=== PATIENT | male | born 1985 | race Caucasian/White ===

== ENCOUNTER 2020-06-12 11:04 | Emergency (ER) | payer BC ==
[2020-06-12 11:11] VITALS: TEMP 98.1; BMI 29.6
--- NOTE | 2020-06-12 11:14 | PDOC ---
Rapid Medical Evaluation Chief Complaint: Chest Pain Time Seen by Provider: 06/12/20 11:12 Medical Evaluation: Allergies Allergy/AdvReac Type Severity Reaction Status Date / Time No Known Allergies Allergy Verified 06/12/20 11:11 Vital Signs Temp Pulse Resp BP Pulse Ox 98.1 F 79 18 118/72 100 06/12/20 11:09 06/12/20 11:09 06/12/20 11:09 06/12/20 11:09 06/12/20 11:09 06/12/20 11:13 CC: intermittent chest pain since 4am, no other complaints, no med hx, + cig smoker Exam: VSS, EKG NSR PLAN: Ekg, labs, , cxr Discharge Disposition - Diagnosis Chest pain - Referrals - Patient Instructions - Post Discharge Activity
--- NOTE | 2020-06-12 11:34 | PDOC ---
*Physical Exam - Vital Signs Last Vital Signs Temp Pulse Resp BP Pulse Ox 98.1 F 79 18 118/72 100 06/12/20 11:09 06/12/20 11:09 06/12/20 11:09 06/12/20 11:09 06/12/20 11:09 Heart Score/ECG Review #1 ECG reviewed & interpreted by me at: 11:12 General ECG Interpretation: Sinus Rhythm, Normal Rate (68), Normal Intervals (qtc 378), No acute ischemic changes Medical Decision Making - Medical Decision Making 06/12/20 11:35 Patient seen and evaluated with the nurse practitioner. I agree with the overall evaluation, assessment, and management with the following summary of visit: Healthy 35-year-old male with no significant past medical history, occasional cigarette smoker, at baseline has no exercise limitations, presents now with sharp chest pain that awoke him from sleep around 4 AM, since then mild but persistent, not associated with any exertional component. Slightly positional, no cough or fevers or chills. Vital signs normal Exam is normal No edema or calf tenderness 35-year-old male with atypical chest pain at rest, no ACS or PE risk factors, no red flags on history or physical exam. Occurred spontaneously about 7 hours prior to arrival, hemodynamically stable here. Check labs including 1 troponin EKG, chest x-ray If above is within normal limits, outpatient follow-up is appropriate given low heart score and atypical presentation Discharge - Discharge Information Problems reviewed: Yes Clinical Impression/Diagnosis: Chest pain Qualifiers: Chest pain type: unspecified Qualified Code(s): R07.9 - Chest pain, unspecified - Follow up/Referral - Patient Discharge Instructions - Post Discharge Activity
--- NOTE | 2020-06-12 11:45 | PDOC ---
History of Present Illness - General Chief Complaint: Chest Pain Stated Complaint: CHEST PAIN Time Seen by Provider: 06/12/20 11:12 History Source: Patient Exam Limitations: No Limitations - History of Present Illness Initial Comments: 06/12/20 11:38 HISTORY OF PRESENT ILLNESS: 35-year-old male denies medical history presents emergency department for evaluation of sudden onset left-sided chest pain starting at 4 AM which woke him from sleep. Patient reports the pain was a s tabbing pressure which is been waxing and waning since onset at 4 AM. Initially pain severity was 10/10 and is presently 3/10. Patient is not taking anything for his pain. Patient reports he was able to go to work today and throughout the day he was concerned that the pain did not go away. Patient spoke with his who recommended he come to the emergency department for evaluation. Patient denies any shortness of breath, leg swelling, dizziness, nausea, vomiting. No recent travel or sick contacts. PAST MEDICAL HISTORY: Denies past medical history SURGICAL HISTORY: Denies ALLERGIES: No known drug allergies PMD: None Reports intermittent tobacco use with 2 to 3 cigarettes daily EtOH: Social Illicits: Denies REVIEW OF SYSTEMS General/Constitutional: Denies fever or chills. Denies weakness, weight change. HEENT: Denies change in vision. Denies ear pain or discharge. Denies sore thr oat. Cardiovascular: See HPI Respiratory: Denies cough, wheezing, or hemoptysis. Gastrointestinal: Denies nausea, vomiting, diarrhea or constipation. Denies rectal bleeding. Genitourinary: Denies dysuria, frequency, or change in urination. Musculoskeletal: Denies joint or muscle swelling or pain. Denies neck or back pain. Skin and breasts: Denies rash or easy bruising. Neurologic: Denies headache, vertigo, loss of consciousness, or loss of sensation. Psychiatric: Denies depression or anxiety. Endocrine: Denies increased thirst. Denies abnormal weight change. Hematologic/Lymphatic: Denies anemia, easy bleeding, or history of blood clots. Allergic/Immunologic: Denies hives or skin allergy. Denies latex allergy. PHYSICAL EXAM General Appearance: Well-appearing, appropriately dressed. No apparent distress, no intoxication. HEENT: EOMI, PERRLA, normal ENT inspection, normal voice, TMs normal, pharynx normal. No conjunctival pallor. No photophobia, scleral icterus. Neck: Supple. Trachea midline. No tenderness, rigidity, carotid bruit, stridor, lymphadenopathy, or thyromegaly. Respiratory/Chest: Lungs CTAB. No shortness of breath, respiratory distress, accessory muscle use. No crackles, rales, rhonchi, stridor, wheezing, dullness. Left side of the chest tender to palpation over where his pain is. Cardiovascular: RRR. S1, S2. No JVD, murmur, bradycardia, tachycardia. Vascular Pulses: Dorsalis-Pedis (R): 2+, Dorsalis-Pedis (L): 2+ Gastrointestinal/Abdominal: Normal bowel sounds. Abdomen soft, non-distended. No tenderness or rebound tenderness. No organomegaly, pulsatile mass, guarding, hernia, hepatomegaly, splenomegaly. Past History - Medical History Allergies/Adverse Reactions: Allergies Allergy/AdvReac Type Severity Reaction Status Date / Time No Known Allergies Allergy Verified 06/12/20 11:11 Home Medications: Ambulatory Orders NK [No Known Home Medication] 07/20/18 Cancer: No Cardiac Disorders: No CVA: No COPD: No - Surgical History Cholecystectomy: No Gastric Stapling: No GI Surgery: No - Psycho-Social/Smoking History Smoking History: Never smoked Information on smoking cessation initiated: No - Substance Abuse Hx (Audit-C & DAST Scrn) How often the patient has a drink containing alcohol: Never Score: In Men: 4 or > Positive; In Women: 3 or > Positive: 0 Screen Result (Pos requires Nsg. Audit-10AR): Negative *Physical Exam - Vital Signs Last Vital Signs Temp Pulse Resp BP Pulse Ox 98.1 F 79 18 118/72 99 06/12/20 11:09 06/12/20 11:09 06/12/20 11:09 06/12/20 11:09 06/12/20 11:09 Heart Score/ECG Review - History History: Slightly suspicious - Electrocardiogram EKG: Normal - Age Age: </= 45 - Risk Factors Risk Factors Heart Score: Yes Smoking History Based on the list above the patient has:: 1-2 risk factors - Troponin Troponin: </= normal limit - Score Heart Score - Total: 1 ED Treatment Course - LABORATORY CBC & Chemistry Diagram: 06/12/20 11:38 06/12/20 11:38 - ADDITIONAL ORDERS Additional order review: Laboratory Results 06/12/20 11:38 Sodium 141 Potassium 4.5 Chloride 106 Carbon Dioxide 29 Anion Gap 6 L BUN 10.2 Creatinine 1.2 Est GFR (CKD-EPI)AfAm 90.26 Est GFR (CKD-EPI)NonAf 77.87 Random Glucose 98 Calcium 9.7 Total Bilirubin 0.7 AST 25 ALT 40 Alkaline Phosphatase 110 Creatine Kinase 196 Troponin I < 0.02 Total Protein 8.3 H Albumin 4.5 06/12/20 11:38 RBC 4.98 MCV 90.9 MCHC 33.3 RDW 13.7 MPV 8.8 Neutrophils % 57.0 Lymphocytes % 33.9 Monocytes % 7.2 Eosinophils % 1.1 Basophils % 0.8 - Medications Given in the ED: ED Medications Discontinued Medications Generic Name Dose Route Start Last Admin Trade Name Freq PRN Reason Stop Dose Admin Naproxen 500 mg 06/12/20 11:58 06/12/20 12:00 Naprosyn - PO 06/12/20 11:59 500 mg ONCE ONE Administration Medical Decision Making - Medical Decision Making 06/12/20 11:45 A/P: 35-year-old male with left-sided chest pain starting at 4 AM this been waxing and waning since that time without any complete cessation of pain Speaking full sentences Respirations even and unlabored Lungs clear to auscultation bilaterally Left pectoral muscle tender to palpation RRR. No murmur, rub or gallop noted Differential diagnosis includes but is not limited to ACS, pneumonia, GERD, musculoskeletal pain, PE PERC score 0. most likely musculoskeletal Labs including cardiac profile EKG-sinus rhythm with rate of 68. Normal intervals present with a QTC 370 ms. No ischemic changes present. Chest x-ray Reassess 06/12/20 12:32 Laboratory Tests 06/12/20 06/12/20 11:38 11:38 WBC 6.6 RBC 4.98 Hgb 15.1 Hct 45.3 MCV 90.9 MCH 30.2 MCHC 33.3 RDW 13.7 Plt Count 194 MPV 8.8 Absolute Neuts (auto) 3.7 Neutrophils % 57.0 Lymphocytes % 33.9 Monocytes % 7.2 Eosinophils % 1.1 Basophils % 0.8 Nucleated RBC % 0 Sodium 141 Potassium 4.5 Chloride 106 Carbon Dioxide 29 Anion Gap 6 L BUN 10.2 Creatinine 1.2 Est GFR (CKD-EPI)AfAm 90.26 Est GFR (CKD-EPI)NonAf 77.87 Random Glucose 98 Calcium 9.7 Total Bilirubin 0.7 AST 25 ALT 40 Alkaline Phosphatase 110 Creatine Kinase 196 Creatine Kinase Index Pending CK-MB (CK-2) Pending Troponin I < 0.02 Total Protein 8.3 H Albumin 4.5 Chest x-ray as read by Dr. Dawkins: No suspicious findings in the lungs. As patient has an unremarkable EKG, normal chest x-ray and laboratory testing is not suggestive of cardiac illness I feel it is safe to discharge the patient home to follow-up with PMD and will give referral for cardiology. I discussed the physical exam findings, ancillary test results and final diagnoses with the patient. I answered all of the patient's questions. The patient was satisfied with the care received and felt comfortable with the discharge plan and treatment plan. The patient will call their primary care physician within 24 hours to arrange follow-up and will return to the Emergency Department with any new, persistent or worsening symptoms. Portions of this note have been documented using voice recognition software. As a result, errors may occur in the indoor landscaper/gardener process. Effort has been made to correct all grammatical and indoor landscaper/gardener error, but some may have been missed which may produce sporadic inaccurate indoor landscaper/gardener or nonsensical phrases. Discharge - Discharge Information Problems reviewed: Yes Clinical Impression/Diagnosis: Chest pain Qualifiers: Chest pain type: unspecified Qualified Code(s): R07.9 - Chest pain, unspecified Condition: Fair Disposition: HOME - Admission No - Follow up/Referral Referrals: [facility] [Provider Group] Neeraj Falcon MD [Staff Physician] - - Patient Discharge Instructions Patient Printed Discharge Instructions: DI for Atypical Chest Pain Additional Instructions: Keep well-hydrated. Eat a well-balanced diet. Take Tylenol or Motrin as needed for pain. Follow hospital wellness coordinator's instructions for appropriate dosage. You have been given a referral today for both a primary doctor as well as a intake coordinator. Without fail follow-up for continued evaluation. Your emergency department visit is incomplete until you follow-up with your primary doctor. Return to the emergency department for any worsening chest pain, shortness of breath, dizziness or for any other concerns. Thank you very much for choosing us to provide your emergent healthcare needs. - Post Discharge Activity
[2020-06-12 11:51] LABS: BASO % 0.8 % (0-2.0); EOS % 1.1 % (0-4.5); HEMATOCRIT 45.3 % (35.4-49); HEMOGLOBIN 15.1 GM/dL (11.7-16.9); LYMPH % 33.9 % (8-40); MCH 30.2 pg (25.7-33.7); MCHC 33.3 g/dl (32.0-35.9); MEAN CELL VOLUME 90.9 fl (80-96); MEAN PLT VOLUME 8.8 fl (7.5-11.1); MONO % 7.2 % (3.8-10.2); PLATELET COUNT 194 K/MM3 (134-434); RBC 4.98 M/mm3 (4.00-5.60); RDW 13.7 % (11.9-15.9); WHITE BLOOD COUNT 6.6 K/mm3 (4.0-10.0)
[2020-06-12] MEDS ORDERED: NAPROXEN 500 MG TABLET PO ONE (11:58)
[2020-06-12] MEDS ORDERED: NAPROXEN 500 MG TABLET ONE (11:59)
[2020-06-12 12:21] LABS: ALBUMIN 4.5 g/dl (3.4-5.0); ALK PHOS 110 U/L (45-117); ANION GAP 6 MMOL/L (8-16); BILIRUBIN,TOTAL 0.7 mg/dL (0.2-1); BLOOD UREA NITROGEN 10.2 mg/dL (7-18); CALCIUM 9.7 mg/dL (8.5-10.1); CHLORIDE 106 mmol/L (98-107); CO2 29 mmol/L (21-32); CREATININE 1.2 mg/dL (0.55-1.3); GLUCOSE,RANDOM 98 mg/dL (74-106); POTASSIUM 4.5 mmol/L (3.5-5.1); SGOT/AST 25 U/L (15-37); SGPT/ALT 40 U/L (13-61); SODIUM 141 mmol/L (136-145); TOT PROT 8.3 g/dl (6.4-8.2)
[2020-06-12 12:48] VITALS: BP 120/78; PULSE 82
--- NOTE | 2020-06-13 12:57 | EKG ---
Test Reason : Blood Pressure : / mmHG Vent. Rate : 068 BPM Atrial Rate : 068 BPM P-R Int : 160 ms QRS Dur : 088 ms QT Int : 356 ms P-R-T Axes : 038 019 018 degrees QTc Int : 378 ms POOR DATA QUALITY, INTERPRETATION MAY BE ADVERSELY AFFECTED NORMAL SINUS RHYTHM NORMAL ECG NO PREVIOUS ECGS AVAILABLE Confirmed by MD BOUCHRA, SYLVIE ([id number]) on 06/13/2020 12:56:49 PM Referred By: Confirmed By:SYLVIE SHOOK MD
== END 2020-06-12 12:49 | disposition home or self-care (01) ==
LOC: JER 11:04
DX: R07.9 Chest pain, unspecified (principal)
CPT/HCPCS: 36415; 71045-TC-FY; 80053; 82550; 82553; 84484; 85025; 93005; 93010; 99285-25